=== PATIENT | female | born 1975 | race Caucasian/White ===

== ENCOUNTER 2018-01-15 13:52 | Inpatient (IN) | payer OTHER ==
[2018-01-15] MEDS: morphine 2 MG INJ IV (16:40)
[2018-01-15] MEDS: SODIUM CHLORIDE 0.9% 1L BAG IV* (16:40)
[2018-01-15] MEDS: ONDANSETRON 4 MG INJ IV (16:40)
[2018-01-15 16:49] LABS: ADD MAN DIFF? NO
[2018-01-15 16:55] LABS: WHITE BLOOD COUNT 15.9 10^3/ul (4.8-10.8)
[2018-01-15 16:55] LABS: BASOPHIL # 0.1 10^3/ul (0.0-0.1); BASOPHILS % 0.4 % (0.0-2.0); EOSINOPHILS % 0.1 % (0.0-7.0); HEMATOCRIT 45.5 % (37.0-47.0); HEMOGLOBIN 15.3 g/dl (12.0-16.0); LYMPHOCYTES # 2.3 10^3/ul (0.8-2.9); LYMPHOCYTES % 14.7 % (15.0-51.0); MEAN CORPUSCULAR HGB CONC 33.6 g/dl (32.0-37.0); MEAN CORPUSCULAR VOLUME 86.3 fl (82.0-101.0); MONOCYTE # 0.9 10^3/ul (0.3-0.9); MONOCYTES % 5.5 % (0.0-11.0); NEUTROPHIL # 12.5 10^3/ul (1.6-7.5); NEUTROPHILS % 78.8 % (39.0-77.0); PLATELET COUNT 286 10^3/UL (140-415); RED BLOOD COUNT 5.27 10^6/ul (4.20-5.40); RED CELL DISTRIBUTION WIDTH 14.4 % (11.5-14.5)
[2018-01-15] MEDS: CEFEPIME 2GM/50 ML (PMX) 50 ML IVPB (16:56)
[2018-01-15 17:13] LABS: ALANINE AMINOTRANSFERASE 27 IU/L (13-69); ALBUMIN 4.5 g/dl (3.3-4.9); ALBUMIN/GLOBULIN RATIO 1.07; ALKALINE PHOSPHATASE 106 IU/L (42-121); ANION GAP 19 (8-16); ASPARTATE AMINO TRANSFERASE 23 IU/L (15-46); BILIRUBIN,INDIRECT 0.3 mg/dl (0-1.1); BILIRUBIN,TOTAL 0.3 mg/dl (0.2-1.3); BLOOD UREA NITROGEN 12 mg/dl (7-20); CALCIUM 9.3 mg/dl (8.4-10.2); CARBON DIOXIDE 26 mmol/L (21-31); CHLORIDE 100 mmol/L (97-110); CREATININE 0.79 mg/dl (0.44-1.00); GLUCOSE 123 mg/dl (70-220); POTASSIUM 3.7 mmol/L (3.5-5.1); SODIUM 141 mmol/L (135-144); TOTAL PROTEIN 8.7 g/dl (6.1-8.1)
[2018-01-15 17:14] LABS: LACTIC ACID 1.9 mmol/L (0.5-2.0)
[2018-01-15 17:25] LABS: TROPONIN-I < 0.012 ng/ml (0.00-0.12)
[2018-01-15 17:27] LABS: INR 0.96; PROTIME 12.9 Sec (11.9-14.9)
[2018-01-15 17:28] LABS: PARTIAL THROMBOPLASTIN TIME 28.8 Sec (25.0-35.0)
[2018-01-15 17:30] LABS: ADD UMIC YES; UR ASCORBIC ACID NEGATIVE (NEGATIVE); UR BACTERIA FEW /HPF (NONE SEEN); UR BILIRUBIN (Dip) NEGATIVE (NEGATIVE); UR BLOOD (Dip) 2+ mg/dL (NEGATIVE); UR CLARITY CLOUDY (CLEAR); UR COLOR AMBER (YELLOW); UR GLUCOSE (Dip) NEGATIVE (NEGATIVE); UR KETONES (Dip) 1+ mg/dL (NEGATIVE); UR LEUKOCYTE ESTERASE (Dip) 1+ Leu/ul (NEGATIVE); UR MUCUS MANY /HPF (NONE SEEN); UR NITRITE (Dip) NEGATIVE (NEGATIVE); UR RBC 2 /HPF (0-5); UR SPECIFIC GRAVITY (Dip) 1.025 (1.003-1.030); UR SQUAMOUS EPITHELIAL CELL MODERATE /HPF (FEW); UR TOTAL PROTEIN (Dip) 2+ mg/dl (NEGATIVE); UR UROBILINOGEN (Dip) 1+ mg/dL (NEGATIVE); UR WBC 24 /HPF (0-5)
[2018-01-15] MEDS: ACETAMINOPHEN 325 MG TAB PO (18:55)
[2018-01-15] MEDS ORDERED: ACETAMINOPHEN 325 MG TAB PO (19:00)
[2018-01-15] MEDS ORDERED: HYDROCODONE/APAP (5/325) TAB PO (19:00)
[2018-01-15] MEDS ORDERED: DOCUSATE SODIUM 100 MG CAP PO (19:00)
[2018-01-15] MEDS ORDERED: morphine 2 MG INJ IV (19:00)
[2018-01-15] MEDS ORDERED: LORAZEPAM 2 MG INJ IV (19:00)
[2018-01-15] MEDS ORDERED: ZOLPIDEM 5 MG TAB PO (19:00)
[2018-01-15] MEDS ORDERED: MAGNESIUM HYDROXIDE 30ML CUP PO (19:00)
[2018-01-15] MEDS ORDERED: ONDANSETRON 4 MG INJ IV (19:00)
[2018-01-15] MEDS ORDERED: NACL 0.9% 3 ML SYG IV (19:00)
[2018-01-15] MEDS ORDERED: SOD CHLORIDE 0.9% 1,000 ML IV (19:07)
[2018-01-15] MEDS ORDERED: VANCOMYCIN IV PER PHARMACY XX (19:30)
[2018-01-15 19:35] LABS: LACTIC ACID 1.1 mmol/L (0.5-2.0)
[2018-01-15] MEDS ORDERED: PIPER-TAZO 3.375 GM IV (PMX) 100 ML IVPB (20:00)
[2018-01-15] MEDS: KETOROLAC 15 MG INJ IV (20:08)
[2018-01-15] MEDS: FAMOTIDINE 20 MG TAB PO (20:17)
[2018-01-15] MEDS ORDERED: LEVOFLOXACIN 500MG/D5W (PMX) 100 ML IVPB (21:00)
[2018-01-15] MEDS: KETOROLAC 30 MG INJ IV (21:33)
[2018-01-15] MEDS ORDERED: AZTREONAM 2 GM in SOD CHLORIDE 0.9% 100 ML IVPB (22:00)
[2018-01-15] MEDS ORDERED: MEROPENEM 1 GM/50ML(PMX) 50 ML IVPB (22:00)
[2018-01-15 22:04] LABS: LACTIC ACID 0.9 mmol/L (0.5-2.0)
[2018-01-15] MEDS: PIPER-TAZO 3.375 GM IV (PMX) 100 ML IVPB (22:25)
[2018-01-15] MEDS: SOD CHLORIDE 0.9% 1,000 ML IV (22:26)
[2018-01-15] MEDS: AZITHROMYCIN 500MG/NS (PMX) 250 ML IVPB (22:40)
[2018-01-16] MEDS: VANCOMYCIN 2 GM in SOD CHLORIDE 0.9% 500 ML IVPB (00:03)
[2018-01-16] MEDS: PIPER-TAZO 3.375 GM IV (PMX) 100 ML IVPB ×2 (05:11→11:45)
[2018-01-16] MEDS: FAMOTIDINE 20 MG TAB PO (08:16)
[2018-01-16] MEDS: SOD CHLORIDE 0.9% 1,000 ML IV (08:16)
[2018-01-16 09:25] LABS: ADD MAN DIFF? NO
[2018-01-16 09:27] LABS: BASOPHIL # 0.1 10^3/ul (0.0-0.1); BASOPHILS % 0.5 % (0.0-2.0); EOSINOPHILS # 0.1 10^3/ul (0.0-0.5); EOSINOPHILS % 0.5 % (0.0-7.0); HEMATOCRIT 40.6 % (37.0-47.0); HEMOGLOBIN 13.1 g/dl (12.0-16.0); LYMPHOCYTES # 2.4 10^3/ul (0.8-2.9); MEAN CORPUSCULAR HEMOGLOBIN 28.7 pg (29.0-33.0); MEAN CORPUSCULAR HGB CONC 32.3 g/dl (32.0-37.0); MEAN CORPUSCULAR VOLUME 88.8 fl (82.0-101.0); MEAN PLATELET VOLUME 11.3 fl (7.4-10.4); MONOCYTE # 0.7 10^3/ul (0.3-0.9); MONOCYTES % 6.3 % (0.0-11.0); NEUTROPHIL # 8.5 10^3/ul (1.6-7.5); NEUTROPHILS % 72.3 % (39.0-77.0); PLATELET COUNT 277 10^3/UL (140-415); RED BLOOD COUNT 4.57 10^6/ul (4.20-5.40); RED CELL DISTRIBUTION WIDTH 14.6 % (11.5-14.5)
[2018-01-16 09:27] LABS: WHITE BLOOD COUNT 11.7 10^3/ul (4.8-10.8)
[2018-01-16 09:50] LABS: ANION GAP 14 (8-16); BLOOD UREA NITROGEN 10 mg/dl (7-20); CALCIUM 8.3 mg/dl (8.4-10.2); CARBON DIOXIDE 30 mmol/L (21-31); CHLORIDE 105 mmol/L (97-110); CREATININE 0.66 mg/dl (0.44-1.00); GLUCOSE 114 mg/dl (70-220); POTASSIUM 3.5 mmol/L (3.5-5.1); SODIUM 145 mmol/L (135-144)
[2018-01-16] MEDS: LACTATED RINGER'S 1,000 ML IV (09:59)
== END 2018-01-16 15:48 | disposition short-term general hospital (02) | DRG 872 ==
LOC: FTE 13:52 → MS4 19:01
DX: A41.9 Sepsis, unspecified organism (principal); N39.0 Urinary tract infection, site not specified; Z68.43 Body mass index [BMI] 50.0-59.9, adult; E86.0 Dehydration; E66.01 Morbid (severe) obesity due to excess calories
CPT/HCPCS: 36415; 71045; 80048; 80053; 81001; 81025; 83605; 84484; 85025; 85610; 85730; 87040; 87086; 87400; 93005; 96374; 96375; 96376; 99291-25